=== PATIENT | male | born 1975 | race Two or more races ===

== ENCOUNTER 2022-02-05 22:22 | Emergency (ER) | payer MEDICAID ==
[~2022-02-05] VITALS: Ht 182.9 cm; Wt 86.6 kg
[2022-02-05 22:27] VITALS: BP 146/84
[2022-02-06] MEDS ORDERED: KETOROLAC 60MG/2ML VIAL IM STA (00:47)
[2022-02-06 01:07] LABS: CLARITY URINE CLEAR (CLEAR); COLOR URINE STRAW (YELLOW); KETONES URINE NEGATIVE (NEGATIVE); PROTEIN URINE NEGATIVE (NEGATIVE); SPECIFIC GRAVITY URINE 1.005 (1.005-1.030)
[2022-02-06 01:08] LABS: EOSINOPHILS % 6.1 % (0.0-5.0); HEMATOCRIT. 39.8 % (42.0-52.0); HEMOGLOBIN. 13.9 g/dL (14.0-18.0); LEUKOCYTE ESTERASE URINE NEGATIVE (NEGATIVE); LYMPHOCYTES % 31.1 % (20.0-50.0); MEAN CORPUSCULAR HEMOGLOBIN 32.4 pg (28.0-32.0); MEAN CORPUSCULAR VOLUME 92.9 fL (80.0-94.0); MONOCYTES % 8.9 % (2.0-8.0); NEUTROPHILS % 52.9 % (40.0-76.0); NITRITE URINE NEGATIVE (NEGATIVE); OCCULT BLOOD URINE NEGATIVE (NEGATIVE); PLATELET 212 x1000/uL (130-400); RED BLOOD CELL COUNT 4.28 mill/uL (4.7-6.1); RED CELL DISTRIBUTION WIDTH 13.8 % (11.6-14.6); UROBILINOGEN URINE 0.2 E.U./dL (0.2-1.0)
[2022-02-06 01:16] LABS: CHLORIDE 105 mEq/L (98-107)
[2022-02-06] MEDS ORDERED: IBUP-2028 MT (03:12)
[2022-02-06] MEDS ORDERED: LIDO1ADH23 TP (03:12)
[2022-02-06] MEDS ORDERED: POLY119P2 MT (03:12)
[2022-02-06] MEDS ORDERED: METH-653 MT (03:12)
[2022-02-06] MEDS ORDERED: TOPUD PO (03:12)
== END 2022-02-06 04:15 | disposition home or self-care (01) ==
LOC: ER 22:22
DX: N23 Unspecified renal colic (principal); F12.90 Cannabis use, unspecified, uncomplicated; F14.90 Cocaine use, unspecified, uncomplicated
CPT/HCPCS: 36415; 74176; 80053; 81003; 83690; 85025; 96372; 99284; J1885